=== PATIENT | female | born 1965 | race Caucasian/White ===

== ENCOUNTER → 2017-06-28 15:03 | Outpatient (CLI) | payer OTHER, SELFPAY ==
--- NOTE | 2017-06-28 15:39 | XR_ITS ---
XR elbow RT min 3V HISTORY: ITS.REASON: pain ORDERING PHYSICIAN: Deidre Loredo PATIENT AGE: 52 years COMPARISON: None FINDINGS: BONY STRUCTURES: No fracture or dislocation. No lytic or blastic change. Normal mineralization. SOFT TISSUES: Unremarkable. No radio opaque foreign bodies. No displaced fat pad. JOINT SPACE: Well-preserved. No significant arthritic changes evident. IMPRESSION: Negative elbow.
[2017-06-28 18:39] LABS: Basophils % 0.3 % (0.1-2.0); Eosinophils # 0.3 K/mm3 (0.0-0.4); Eosinophils % 3.1 % (0.1-12.0); Hematocrit 41.7 % (37.0-47.0); Hemoglobin 13.9 g/dL (12.2-16.2); Mean Corpuscular HGB Conc 33.5 g/dL (31.8-35.4); Mean Corpuscular Hemoglobin 29.4 pg (27.0-31.2); Mean Corpuscular Volume 87.7 fl (81-99); Mean Platelet Volume 8.3 fl (7.4-10.4); Monocytes # 0.4 K/mm3 (0.1-1.0); Monocytes % 4.8 % (1.7-9.3); Neutrophils # 4.8 K/mm3 (1.8-7.8); Neutrophils % 56.7 % (37.0-80.0); Platelet Count 288 K/mm3 (142-424); Red Blood Count 4.75 M/mm3 (4.20-5.40); Red Cell Distribution Width 12.9 % (11.5-17.5); White Blood Count 8.5 K/mm3 (4.8-10.8)
[2017-06-28 18:48] LABS: Alanine Aminotransferase 60 U/L (12-78); Albumin Level 3.7 gm/dL (3.4-5.0); Albumin/Globulin Ratio 0.9 (1.1-1.8); Alkaline Phosphatase 75 U/L (46-116); Aspartate Amino Transferase 26 U/L (15-37); Bilirubin,Total 0.2 mg/dL (0.2-1.0); Blood Urea Nitrogen 9 mg/dL (7-18); Calcium 8.8 mg/dL (8.5-10.1); Carbon Dioxide 27 mmol/L (21.0-32.0); Chloride 102 mmol/L (98-107); Chol/HDL Ratio 3.4 (1-3.5); Cholesterol 146 mg/dL (140-200); Creatinine,Serum 0.81 mg/dL (0.55-1.02); Estimated Glomerular Filt Rate 75 ml/min (>60); GFR (African American) 91 ML/MIN (>60); Globulin 4.3 gm/dl (1.3-3.2); Glucose 135 mg/dL (74-106); HDL Cholesterol 43 mg/dL (29-89); LDL Cholesterol 70 mg/dL (0-130); Sodium 138 mmol/L (136-145); Triglycerides 164 mg/dL (30-200); VLDL Cholesterol 33 mg/dL (0-40)
[2017-06-28 19:31] LABS: Hemoglobin A1C 6.8 % (0.0-7.0)
== END ==
PROVIDERS: PCP Nurse Practitioner Family; Visit Provider Nurse Practitioner Family
DX: R53.83 Other fatigue (principal); M25.521 Pain in right elbow; Z79.899 Other long term (current) drug therapy
CPT/HCPCS: 73080; 80053; 80061; 82652; 83036; 84439; 84443; 85025

== ENCOUNTER → 2017-07-12 10:37 | Outpatient (POV) | payer OTHER, SELFPAY | PROVIDERS: Family Provider Emergency Medicine; PCP Nurse Practitioner Family; Visit Provider Physician Assistant | DX: Z00.00 Encounter for general adult medical examination without abnormal findings (principal) ==

== ENCOUNTER 2024-07-07 16:16 | Emergency (ER) | payer BC, SELFPAY ==
[2024-07-07 16:25] VITALS: BP 204/110; PULSE 90; RESP 18; TEMP 36.4; O2SAT 98; BMI 37.1
--- NOTE | 2024-07-07 17:35 | ED_ITS ---
Discharge Plan Disposition Patient Disposition: Home, Self-Care Prescriptions Prescriptions: No Action amlodipine [Norvasc] 10 mg tablet 10 mg PO DAILY Qty: 30 5RF cholecalciferol (vitamin D3) 5,000 unit capsule 5,000 unit PO DAILY Qty: 30 5RF escitalopram oxalate [Lexapro] 10 mg tablet 10 mg PO DAILY Qty: 30 0RF cyclobenzaprine 5 mg tablet 5 mg PO Q8H Qty: 24 0RF ergocalciferol (vitamin D2) 50,000 unit capsule 50,000 unit PO QWEEK Qty: 4 1RF bisoprolol fumarate 5 mg tablet 5 mg PO DAILY Qty: 30 0RF Rx Instructions: needs appt for refills losartan 50 mg tablet 50 mg PO DAILY Qty: 90 1RF hydrochlorothiazide 25 mg tablet 25 mg PO DAILY Qty: 30 5RF Referrals Follow up/Referrals: Jennie Euceda MD [Primary Care Provider] - See instructions Corby Hernandez MD [Staff Physician] - See instructions Activity Restrictions/Add. Instructions Additional Instructions/Restrictions: Call your family doctor to establish care for this visit to the emergency department and schedule follow-up within 48 hours to ensure improvement. If you have any worsening of your condition or any other concerning signs or symptoms, return to the emergency department or your primary care doctor for further evaluation. Clinical Impressions Clinical Impression: Hematoma of right hand Print Language Print Language: Slovak Discharge ED Provider: Francisco Lujan General Adult HPI General Chief complaint: PAIN Stated complaint: raised knot on right hand,right arm tingling Time Seen by Provider: 07/07/24 16:49 Mode of Arrival: Ambulatory Source of Information: Patient Description of Symptoms (Recalled from ER Triage Doc. by RN): Pt states she was getting ready for work and noticed she had a pea sized swollen area to her right hand, and eventually it has continued to swell to about 1 x1 . Pt denies hitting her hand on anything, denies Blood thinners. Pt states she has tingling to her right arm. History of Present Illness HPI narrative: Please note that above description of symptoms, in this electronic medical record under categorization of recalled from ER triage doctor by RN are reflective of an initial nursing assessment, however, is not reflective of my full history and physical exam that was personally taken and clarified. Consequentially, this preceding description of symptoms, which may include the patient's categorized chief complaint in the EMR, do not reflect my personal clinical impression, and the ultimate description of history of present illness and patient stated complaints should be deferred to this section of the note. Unless stated otherwise or congruent with this section of the note, additional signs, symptoms, or incongruence should be interpreted as inaccurate with my clinical impression. Related Data Previous Rx's ?Medication ?Instructions ?Recorded amlodipine 10 mg tablet (Norvasc) 10 mg PO DAILY #30 tabs 07/06/17 cyclobenzaprine 5 mg tablet 5 mg PO Q8H #24 tabs 08/09/17 ergocalciferol (vitamin D2) 1,250 50,000 unit PO QWEEK #4 caps 09/08/17 mcg (50,000 unit) capsule cholecalciferol (vitamin D3) 125 5,000 unit PO DAILY #30 caps 02/14/18 mcg (5,000 unit) capsule escitalopram oxalate 10 mg tablet 10 mg PO DAILY #30 tabs 02/14/18 (Lexapro) bisoprolol fumarate 5 mg tablet 5 mg PO DAILY #30 tabs 07/05/18 losartan 50 mg tablet 50 mg PO DAILY #90 tabs 07/06/18 hydrochlorothiazide 25 mg tablet 25 mg PO DAILY #30 tabs 09/30/18 Allergies Allergy/AdvReac Type Severity Reaction Status Date / Time lisinopril Allergy Anaphylaxis Verified 02/14/18 09:10 [facility] Disclaimer: The information contained in this section may have been updated after the patient was seen, as this information can be updated by other users. Medical History (Updated 07/07/24 @ 17:36 by Francisco Lujan MD) History of uncontrolled hypertension Obesity Dizziness Abnormal EKG Palpitations Social History Smoking Status: Never smoker alcohol intake: never substance use type: denies use current occupational status: employed Travel in the last 8 weeks: None Other Medical History Have you received the Flu Vaccine for this season: No Have you received the Pneumonia Vaccine: No ROS Obtained: Yes All systems reviewed & no additional complaints except as documented Physical Exam General General appearance: alert Head Head exam: atraumatic and normocephalic Eye Eye exam: Present normal appearance, PERRL and EOMI Neck Neck exam: Present normal inspection, full ROM and trachea midline Respiratory Respiratory exam: Absent respiratory distress, wheezes, stridor, accessory muscle use or prolonged expiratory phase Cardiovascular Cardiovascular exam: Present other (Pulses equal symmetric in upper and lower extremities) Abdominal Exam Abdominal exam: Present soft; Absent distention, tenderness or pulsatile mass Extremities Exam Extremities exam: Present edema and other (Hematoma posterior aspect of right hand) Neurological Exam Neurological exam: Present alert, oriented X3 and CN II-XII intact; Absent motor sensory deficit Skin Skin exam: Present warm and dry; Absent diaphoresis or erythema Medical Decision Making Medical Records Medical records reviewed: Yes I reviewed the patient's medical records. Screening: Per USPSTF and CDC recommendations, given the prevalence of disease in our region, it is our hospital?s policy to screen for HIV and viral Hepatitis for all patients aged 18 and over and those with ongoing risk factors. Cas Inquiry Pt receiving controlled substance: No Cas was queried for this patient: No Vital Signs: 07/07/24 16:25 Temperature 97.6 F Temperature Source Oral Pulse Rate [Right] 90 Respiratory Rate 18 Blood Pressure [Right Arm] 204/110 H Blood Pressure Mean [Right Arm] 141 Blood Pressure Source [Right Arm] Automatic Cuff Blood Pressure Position [Right Arm] Sitting 02 Sat by Pulse Oximetry 98 Oxygen Delivery Method Room Air Orders (Tests/Meds): ORDERS Category Date Time Status POCUS Point of Care (ER Only) Stat Exams 07/07/24 17:05 Ordered Medical Decision Narrative: 59-year-old female with history of hypertension not currently at goal presenting with hematoma on the back of her right hand. She states that she was getting dressed, noticed a pea-sized bump on the back of her right hand, since that time it has swollen and become a larger blue bump. Minimally tender, but associated with paresthesias that shoot down into her fingers distally and up into her arm proximally. No other trauma sustained. Not on anticoagulation. History was obtained via conversation with patient. On arrival, patient hemodynamically stable, alert, oriented x4, appropriate, GCS 15, moving all extremities spontaneously, pupils equal and reactive to light. Full physical exam performed and significant for very clinically well-appearing no acute distress. She has a 2-1/2 cm circular hematoma on the dorsal aspect of her right hand. Nontender, mobile. Does not appear to be rapidly expanding. Neurovascularly intact and range of motion intact. Differential includes hematoma, among others. Patient placed on continuous cardiac monitoring and continuous pulse ox with initial blood pressure 204/110, heart rate 90, saturation 98% on room air. Hematologic labs were considered, but not deemed necessary. Appears to be a localized hematoma with no other signs of easy bruising or bleeding. X-ray was considered, but not deemed necessary, minimal pain, no trauma sustained, unlikely to be fracture. Bedside [id number] ultrasound was performed. Patient has hematoma on the dorsum of her hand with no active extravasation or blood flow. Does not violate fascial planes. Given patient presentation, workup, history, this most likely represents acute hematoma. Regarding social determinants of health, patient states that she is looking for a primary care provider, referral to PCP here at [facility] was provided. Because patient at baseline without signs or symptoms of clinical decompensation, deemed appropriate for discharge. Results were relayed to patient who voiced understanding and were agreeable to outpatient management and follow up. I discussed my clinical impression with patient and answered all questions. At this time, the evidence for any other entities in the differential is insufficient to warrant any further testing or ED observation. This was explained as well. Advisory was given that persistent or worsening symptoms require further evaluation. I confirmed the understanding of this discussion. Primer Charging Tool Setter disclaimer Much of this encounter note is an electronic print production associate spoken language to printed text. Electronic print production associate of the spoken language may permit errors. Although I have reviewed the note, some errors may still exist. Procedures Limited Ultrasound Indication:: Limited soft tissue ultrasound Indication: Soft tissue swelling dorsum of right hand Identified structures: Location: Right hand Findings: Hematoma with no active extravasation of the right hand external to the fascial plane Impression: Hematoma, otherwise unremarkable. Bones without signs of cortical abnormality Images were saved to permanent archive The study was technically adequate Soft Tissue CPT Codes: CPT Neck: 62399-66 CPT Upper extremity: 39040-59 CPT Axilla: 18573-91 CPT Chest wall: 98258-55 CPT Breast: 44983-69-UC/LT (complete), 08789-49-DU/LT (limited), CPT Upper Back: 64879-26 CPT Lower Back: 16644-64 CPT Abdominal Wall: 39614-47 CPT Pelvic Wall: 53172-61 CPT Lower Extremity: 45948-40 CPT Other Soft Tissue: 40609-16 This study was performed by me, and I personally interpreted all images/videos. Based on my clinical judgement, these images were adequate and did not necessitate further imaging. Critical Care Critical Care Time Critical Care Time: No
[2024-07-07 17:43] VITALS: BP 164/110; PULSE 79; RESP 16; TEMP 36.4; O2SAT 99
== END 2024-07-07 17:44 | disposition home or self-care (01) ==
PROVIDERS: Emergency Provider Emergency Medicine; PCP Family Medicine
DX: S60.221A Contusion of right hand, initial encounter (principal); R22.31 Localized swelling, mass and lump, right upper limb; R20.2 Paresthesia of skin
CPT/HCPCS: 99283

== ENCOUNTER 2024-07-24 15:53 | Outpatient (CLI) | payer BC, SELFPAY ==
[2024-07-24 16:20] LABS: Basophils # 0.1 K/mm3 (0-0.2); Basophils % 0.8 % (0.1-2.0); Eosinophils # 0.2 K/mm3 (0.0-0.4); Eosinophils % 2.8 % (0.1-12.0); Hematocrit 43.2 % (37.0-47.0); Hemoglobin 14.4 g/dL (12.2-16.2); Lymphocytes # 2.8 K/mm3 (0.7-4.5); Lymphocytes % 35.5 % (10-50); Mean Corpuscular HGB Conc 33.3 g/dL (31.8-35.4); Mean Corpuscular Hemoglobin 28.1 pg (27.0-31.2); Mean Corpuscular Volume 84.4 fl (81-99); Mean Platelet Volume 9.7 fl (7.4-10.4); Monocytes # 0.5 K/mm3 (0.1-1.0); Neutrophils # 4.3 K/mm3 (1.8-7.8); Neutrophils % 54.9 % (37.0-80.0); Platelet Count 321 K/mm3 (142-424); Red Blood Count 5.12 M/mm3 (4.20-5.40); Red Cell Distribution Width 12.9 % (11.5-17.5); White Blood Count 7.8 K/mm3 (4.8-10.8)
[2024-07-24 16:29] LABS: Activated Partial Thrombo Time 25.4 seconds (22.8-30.6); INR 0.89 (0.9-1.1); Prothrombin Time 10.1 seconds (10.1-12.5)
[2024-07-24 16:58] LABS: Albumin Level 4.9 g/dl (3.5-5.0); Chloride 101 mmol/L (98-107)
[2024-07-24 16:59] LABS: Potassium 4.7 mmoL/L (3.5-5.1); Sodium 140 mmol/L (136-145)
[2024-07-24 17:01] LABS: Alanine Aminotransferase 54 U/L (12-78); Albumin/Globulin Ratio 1.6 (1.1-1.8); Alkaline Phosphatase 105 U/L (38-126); Anion Gap 14.7 mEq/L (5-15); Aspartate Amino Transferase 54 U/L (14-36); Bilirubin,Total 0.6 mg/dl (0.2-1.3); Blood Urea Nitrogen 12 mg/dl (7-17); Carbon Dioxide 29 mmol/L (22.0-30.0); Estimated Glomerular Filt Rate 103 ml/min (>60); GFR (African American) 125 ML/MIN (>60); Globulin 3.1 g/dL (1.3-3.2)
[2024-07-24 17:02] LABS: Calcium 9.7 mg/dl (8.4-10.2); Chol/HDL Ratio 4.3 (1-3.5); Cholesterol 194 mg/dl (140-200); Glucose 191 mg/dl (74-100); HDL Cholesterol 45 mg/dl (40-60); Triglycerides 228 mg/dl (30-150); VLDL Cholesterol 46 mg/dL (0-40)
[2024-07-24 17:20] LABS: Free T4 (Free Thyroxine) 1.03 ng/dl (0.78-2.19)
[2024-07-24 17:33] LABS: Thyroid Stimulating Hormone 0.94 uIU/mL (0.465-4.68)
[2024-07-24 18:39] LABS: Hemoglobin A1C 7.6 % (4.0-6.0)
== END 2024-07-24 23:59 | disposition home or self-care (01) ==
LOC: LAB 15:54
PROVIDERS: PCP Family Medicine; Visit Provider Family Medicine
DX: R53.82 Chronic fatigue, unspecified (principal); I10 Essential (primary) hypertension; E66.01 Morbid (severe) obesity due to excess calories; Z68.41 Body mass index [BMI] 40.0-44.9, adult; R94.31 Abnormal electrocardiogram [ECG] [EKG]
CPT/HCPCS: 36415; 80053; 80061; 83036; 84439; 84443; 85025; 85610; 85730

== ENCOUNTER 2024-08-10 09:50 | Outpatient (CLI) | payer BC, SELFPAY | END 2024-08-10 23:59 | disposition home or self-care (01) | LOC: RT 09:51 | PROVIDERS: PCP Family Medicine; Visit Provider Nurse Practitioner Family | DX: I49.1 Atrial premature depolarization (principal); I49.3 Ventricular premature depolarization; R00.2 Palpitations; Z86.79 Personal history of other diseases of the circulatory system | CPT/HCPCS: 93270 ==

== ENCOUNTER 2025-02-02 09:52 | Outpatient (CLI) | payer BC, SELFPAY ==
[2025-02-02 15:21] LABS: Alanine Aminotransferase 53 U/L (12-78); Albumin Level 4.0 g/dl (3.5-5.0); Albumin/Globulin Ratio 1.3 (1.1-1.8); Alkaline Phosphatase 132 U/L (38-126); Anion Gap 16.4 mEq/L (5-15); Aspartate Amino Transferase 45 U/L (14-36); Bilirubin,Total 0.5 mg/dl (0.2-1.3); Blood Urea Nitrogen 12 mg/dl (7-17); Calcium 9.2 mg/dl (8.4-10.2); Carbon Dioxide 25 mmol/L (22.0-30.0); Chloride 102 mmol/L (98-107); Creatinine,Serum 0.60 mg/dl (0.52-1.04); Estimated Glomerular Filt Rate 103 ml/min (>60); GFR (African American) 125 ML/MIN (>60); Globulin 3.0 g/dL (1.3-3.2); Glucose 214 mg/dl (74-100); Potassium 4.4 mmoL/L (3.5-5.1); Sodium 139 mmol/L (136-145); Total Protein,Serum 7.0 g/dl (6.3-8.2)
[2025-02-02 15:35] LABS: 25-OH Vitamin D, Total 47.8 ng/mL (30-100)
--- OUTSIDE RECORDS SUMMARY | 2025-02-05 09:59 | XMS_ITS | Encounter Summary ---
Author Organization [facility] Address [address] [place] [address] Care Team Providers Care Line Clearance Foreman Name Role Phone Roberto Quezada Primary Care Provider Reason for Visit * Reason Comments Med Refill Encounter Details Date Type Department Care Team (Late st Contact Info) Description 01/19/2025 Refill [facility] [address], [address] [place] [address] Lucila Ashraf DO [address] [place] [address] Social History Tobacco Use Types Packs/Day Years Used Date Smoking Tobacco: Never Passive Smoke Exposure: Never Smokeless Tobacco: Never Alcohol Use Standard Drinks/Week Comments Not Currently 0 (1 standard drink = 0.6 oz pur e alcohol) Humiliation, Afraid, Rape, and Kick questionnair e Answer Date Recorded Within the last year, have y ou been afraid of your partner or ex-partner? No 12/02/2023 Within the last year, have y ou been humiliated or emotionally abused in other ways by your partner or ex-partner? No Within the last year, have y ou been kicked, hit, slapped, or otherwise physically hurt by your partner or ex-partner? No 12/02/2023 Within the last year, have y ou been raped or forced to have any kind of sexual activity by your partner or ex-partner? No 12/02/2023 PHQ-2 Answer Date Recorded Patient Health Questionnaire-2 Score 0 12/02/2023 Hunger Vital Sign Answer Date Recorded Within the past 12 months, y ou worried that your food would run out before you got the money to buy more. Never true 12/02/19 24 Within the past 12 months, t he food you bought just didn't last and you didn't have money to get more. Never true 12/02/2023 PRAPARE - Transportation Answer Date Re corded In the past 12 months, has l ack of transportation kept you from medical appointments or from getting medications? No 11/2023 In the past 12 months, has l ack of transportation kept you from meetings, work, or from getting things needed for daily living? No 12/02/2023 Housing Stability Vital Sign Answer Cole e Recorded In the last 12 months, was t here a time when you were not able to pay the mortgage or rent on time? No 12/02/2023 Number of Places Lived in the Last Year Not on f ile 12/02/2023 In the last 12 months, was t here a time when you did not have a steady place to sleep or slept in a assisted (including now)? No 12/02/2023 Safety and Environment Answer Date Desmond rded Do you worry that your child may have been physically abused? No 12/02/2023 Do you worry that your child may have been sexua lly abused? No 12/02/2023 Are there any guns kept in o r around your home or where your child spends time? No 12/02/2023 Guns Unloaded or Locked Away Not on file 11/2023 Utilities Answer Date Recorded In the past 12 months has th e electric, gas, oil, or water company threatened to shut off services in your home? No 12/02/2023 Comments No Sex and Gender Information Value Date Recorded Sex Assigned at Not on file Legal Sex Female 10:22 AM EDT Gender Identity Not on file Sexual Orientation Not on file documented as of this encounter Plan of Treatment Not on file documented as of this encounter Visit Diagnoses Not on filedocumented in this encounter Additional Health Concerns Assessment Noted Time A Body Mass Index follow-up plan has been documented for the patient 12/02/2023 4:41 PM EDT documented as of this encounter Care Teams Line Clearance Foreman Relationship Specialty Start Date End Date Roberto Quezada PA [address] [facility] [address] [place] [address] PCP - General Family Medicine 12/04/24 documented as of this encounter
--- OUTSIDE RECORDS SUMMARY | 2025-02-05 09:59 | XMS_ITS | Clinical Summary ---
Author Organization [facility] Address [address] [place] [address] Care Team Providers Care Dining Service Supervisor Name Role Phone Roberto Quezada Primary Care Provider [phone] Allergies Active Allergy Reactions Criticality Noted Date Comments Lisinopril Other - please docum ent in the comment field Low 12/12/2022 Pt states she felt aggressive Medications * This document contains information received from the source organization and may not represent a complete record from that organization. oxybutynin XL (Ditropan-XL) 10 MG 24 hr tablet Take 10 mg by mouth 1 (one) time each day. 07/29/2021 Active omeprazole (PriLOSEC) [address] capsule Take 40 mg by mouth 1 (one) time each day. 07/29/2021 Active diclofenac (Voltaren) 75 MG EC tablet Take 75 mg by mouth 2 (two) times a day if needed. 07/29/2021 Active cetirizine (ZyrTEC) 10 MG tablet Take 10 mg by mouth 1 (one) time each day. 07/29/2021 Active busPIRone (Buspar) 10 MG tablet Take 10 mg by mouth twice a day. 07/29/2021 Active losartan (Cozaar) 100 MG tabletIndications :Essential (primary) hypertension Take 1 tablet (100 mg) by mouth 1 (one) time each day. 90 tablet 3 12/02/2023 Active hydroCHLOROthiazi de (HYDRODiuril) 25 MG tablet Take 1 tablet (25 mg) by mouth 1 (one) time each day. 90 tablet 3 01/01/2024 Active Active Problems Problem Noted Date Diagnosed Date Generalized anxiety disorder 12/02/2023 Chronic autoimmune thyroiditis 11/13/2020 Overview (12/02/2023): Last Assessment & Plan: The patient was found to have chronic autoimmune thyroiditis. The nature of her condition as well as the results of work-up were discussed with the patient at length. We will reassess the thyroid function today and decide on the need for intervention. Goiter, nontoxic, multinodular 11/13/2020 Overview (12/02/2023): Last Assessment & Plan: Follow up U/S stable To recheck if sx persist. Diabetic peripheral neuropathy 07/02/2020 Essential (primary) hypertension 07/02/2020 Overview (12/02/2023): Last Assessment & Plan: Goal BP: <140/90 in office and <135/85 at home - not at goal Compliance: - compliant with medications - attempting to reach goal with dietary and lifestyle changes without medication Home Blood Pressure Monitoring: - continue home BP monitoring as previous and bring readings to each office visit Advice: - continue a low salt diet and remain physically active Medication Management: - medication management decisions took place at today's visit (see orders) Type 2 diabetes mellitus wit h hyperglycemia, without long-term current use of insulin 12/28/2018 Overview (12/02/2023): Last Assessment & Plan: Goal A1C: < 7.0 and TIR >70% - Last A1c - 7.1 - 09/11/2022 - at goal Compliance: - compliant with diet and medications Home Glucose Monitoring: - none Retinopathy Screening: Retinopathy Not Present - Last Eye Exam - 09/11/2022 - patient reminded to complete a retinal exam annually Nephropathy Assessment: - microalbumin screening completed in the past 12 months Foot Assessment: Last Foot Exam Date - 06/22/2023 - no ulcers or pre-ulcers Diet Advice: - discussed improving diet by reducing carbohydrates at today's visit Statin Therapy: Currently not on a statin Medication Management: - medication management decisions took place at today's visit (see orders) Encounters Date Type Department Care Team Description 01/19/2025 Refill [facility] [address] [place] [address] Lucila Ashraf DO from Last 3 Months Immunizations Immunization Administration Dates Next Due Influenza, injectable, quadrivalent 12/26/2020 Influenza, recombinant, quad rivalent, injectable, preservative free 03/12/2022 Pneumococcal 20-jeremie Conj Vaccine 09/11/2022 Pneumococcal Polysaccharide PPV23 12/26/2020 Tdap 03/18/2021 Family History Medical History Relation Name Comments Hypertension Father Hypertension Maternal Grandfather Breast cancer Maternal Grandmother Hypertension Maternal Grandmother Hypertension Mother Hypertension Paternal Grandfather Hypertension Paternal Grandmother Relation Name Status Comments Father Maternal Grandfather Maternal Grandmother Mother Paternal Grandfather Paternal Grandmother Social History Tobacco Use Types Packs/Day Years [...] place to sleep or slept in a retirement (including now)? No 12/02/2023 Safety and Environment [...] on file Sexual Orientation Not on file Last Filed Vital Signs Vital Sign Reading Time Taken Comments Blood Pressure 165/95 03/21/2024 8:34 PM EST Pulse 84 03/21/2024 7:25 PM EST Temperature 36.5 C (97.7 F) 03/21/2024 7:25 PM EST Respiratory Rate 16 03/21/2024 7:25 PM EST Oxygen Saturation 97% 03/21/2024 7:25 PM EST Inhaled Oxygen Concentration - - Weight 104 kg (229 lb 4.5 oz) 03/21/2024 7:21 PM EST Height 167.6 cm (5' 6 ) 12/02/2023 3:54 PM EDT Body Mass Index 37.01 12/02/2023 3:54 PM EDT Plan of Treatment Health Maintenance Due Date Last Done Comments [facility]-Infant/Child/Adol SDOH Screenings 1967 Diabetes: Dental Exam 1977 [facility]- SDOH Screenings 1985 [facility]-Adult SDOH Screenings 1985 [facility]-Pap Smear 1988 [facility]-Cervical Cancer Screening 1997 [facility]-HPV/Cotest 1997 CT Colonography 2012 Colonoscopy 2012 FIT-DNA 2012 FIT 2012 FOBT 2012 Sigmoidoscopy 2012 [facility]-Colorectal Cancer Screening 2012 [facility]-Zoster Vaccines (1 of 2) 2017 [facility]-Breast Cancer Screening 05/09/202304/26, 05/09/2021, 05/08/2020, Additional history exists [facility]-Diabetes: Hemoglobin A1C 03/02/2024 12/02/2023 [facility]-Depression Screening 12/01/2024 12/02/2023 [facility]-Influenza Vaccine (#1) 12/25/202401/05, 03/12/2022, 12/26/2020 [facility]-DTaP,Tdap,and Td Vaccines (2 - Td or Tdap) 03/18/2031 03/18/2021 [facility]-LGEYP-90 Vaccine Discontinued 05/09/2021, 11/02/2020, 10/05/2020 [facility]-Pneumococcal Vaccine: 50+ Years Completed 09/11/2022, 12/26/2020 [facility]-HIV Screening Completed 12/12/2022 [facility]-Hepatitis C Screening Completed 12/12/2022 [facility]-Obesity Intervention Completed 12/02/2023, 06/2023 HPV Vaccines Aged Out No longer eligi ble based on patient's age to complete this topic [facility]-HIB Vaccines Aged Out No longer e ligible based on patient's age to complete this topic [facility]-Hepatitis A Vaccines Aged Out No longer eligible based on patient's age to complete this topic [facility]-Hepatitis B Vaccines Discontinued [facility]-IPV Vaccines Aged Out No longer e ligible based on patient's age to complete this topic [facility]-Rotavirus Vaccines Aged Out No lo nger eligible based on patient's age to complete this topic Procedures Procedure Name Priority Date/Time Associated Diagnosis Comments HEMOGLOBIN A1C Routine 12/02/2023 4:41 PM EDT Type 2 diabetes mellitus with hyperglycemia, without long-term current use of insulin (CMS/HCC) HEPATITIS C ANTIBODY - ED W/REFLEX TO HCV QUANT PCR STAT 12/12/2022 7:48 PM EDT ED HIV 1/2 ANTIBODY/ANTIGEN SCREEN WITH REFLEX TO HIV I/II DIFFERENTIATION STAT 12/12/2022 7:48 PM EDT from Last 3 Months or Most Recently Relevant to Health Maintenance Results * (ABNORMAL) Hemoglobin A1c (12/02/2023 4:41 PM EDT) Hemoglobin A1c 7.5(H) <5.7 % 12/02/2023 7:44 PM EDT [facility] Blood Venous blood specimen / Unknown Venipuncture / Unknown 12/02/2023 4:41 PM EDT 12/02/2023 4:41 PM EDT Narrative [facility] - 12/02/2023 7:44 PM EDT HA1C Interpretive Data: Diagnosis of Diabetes: Diabetic > or = 6.5% Pre-diabetic 5.7 to 6.4% Non-diabetic < or = 5.6% Glycemic Targets for Type I and Type II Diabetics: Non- Adults <7.0% Adults <6.0% Children and Adolescents <7.5% Source: [place] [employer]. Standards of medical care in diabetes,2017. Diabetes Care.2017:40 (suppl 1):S1-S135. HbA1c assay performed by an ion-exchange chromatography method that is certified traceable to the DCCT. Lyly Rios APRN LAB BLOOD ORDERABLES Alida l Result [facility] [address] [place] [id number] * ED HIV 1/2 Antibody/Antigen Screen w/Reflex to HIV 1/2 Differentiation (12/12/2022 7:48 PM EDT) HIV 1 & 2 Antibody/Antigen Screen Non Reactive Non Reactive 12/12/2022 9:29 PM EDT [facility] Comment:Screening for HIV 1 & 2 antibodies, and P24 antigen is NONREACTIVE. No confirmatory testing is required. Blood Venous blood specimen / Unknown Venipuncture / Unknown 12/12/2022 7:48 PM EDT 12/12/2022 7:57 PM EDT [facility]LOOD ORDERAB[facility] Fin al Result [facility] [address] [place] [address] * Hepatitis C Antibody - ED (12/12/2022 7:48 PM EDT) Hepatitis C Antibody Negative Negative 12/12/2022 9:24 PM EDT [facility] Blood Venous blood specimen / Unknown Venipuncture / Unknown 12/12/2022 7:48 PM EDT 12/12/2022 7:57 PM [facility] Fin [facility] [address] [place] [address] from Last 3 Months or Most Recently Relevant to Health Maintenance Insurance ANTH Care Teams Dining Service Supervisor Relationship Specialty Start Date End Date Roberto Quezada PA [address] [facility] [address] [facility] [address] [place] [address] PCP - General Family Medicine 12/04/24
== END 2025-02-02 23:59 ==
LOC: LAB.DROPOF 02-05 09:53
PROVIDERS: PCP Family Medicine; Visit Provider Family Medicine
DX: E11.9 Type 2 diabetes mellitus without complications (principal)
CPT/HCPCS: 80053; 82043; 82306; 82570